=== PATIENT | female | born 1970 | race Caucasian/White ===

== ENCOUNTER 2016-12-14 01:55 | Emergency (ER) | payer OTHER ==
[2016-12-14] MEDS ORDERED: FLUORESCEIN STRIP 1 MG/STRIP STRIP ONE (02:20)
--- NOTE | 2016-12-14 02:28 | ER PHYSICIAN DOCUMENTATION ---
Physician Documentation [facility] Name:Nola Mcintyre Age:46 yrs Sex:Female :1970 Arrival Date:12/14/2016 Time:01:55 Bed2 Private MD: Martínez Tinoco Disposition: 12/14/16 02:19 Discharged to Home/Self Care. Impression: Corneal Abrasion. - Condition is Fair. - Discharge Instructions: CORNEAL ABRASION. - Prescriptions for Tobramycin Sulfate 0.3 % Ophthalmic Drops - instill 2 drop by OPHTHALMIC route every 4 hours; 5 milliliter. Acular 0.5 % Ophthalmic Drops - instill 1 drop by OPHTHALMIC route every 6 hours into affected eye(s); 5 milliliter. - Medical Reconciliation form form. - Follow up: Gregory Carey MD; When: 1 - 2 days; Reason: Continuance of care. - Problem is new. - Symptoms have improved. HPI: 12/14 03:45 This 46 yrs old Female presents to ER via Walk In with complaints of Eye Pain jm - Right. 03:45 The patient is experiencing pain. Onset: The symptom(s)/episode began/occurred today. jm The patient has experienced similar episodes in the past, and the symptoms today are exactly the same, to when the patient was apparently diagnosed with corneal abrasion. . Historical: - Allergies: No known drug Allergies; - Tetanus: < 10 years. - Ebola Screening: : Patient negative for fever greater than or equal to 101.5 degrees Fahrenheit, and additional compatible Ebola Virus Disease symptoms. Patient denies exposure to infectious person. Patient denies travel to an Ebola-affected area in the 21 days before illness onset. No symptoms or risks identified at this time. . - Immunization history: Flu Vaccine < 1 year. - Social history: Smoking status: Patient states was never smoker of tobacco. ROS: 03:46 Constitutional: Negative for fatigue. jm 03:46 Eyes: Positive for pain. 03:46 Abdomen/GI: Negative for abdominal pain, nausea, vomiting. Exam: 03:46 Constitutional: The patient appears alert, awake. jm 03:46 Eyes: Corneas: abrasion, that is moderate sized, at 5 o'clock, a fluorescein strip employed to appreciate the findings. Vital Signs: 02:03 BP 164 / 97 LA Sitting (auto/reg); Pulse 96 LA; Resp 16 S; Temp 98.1(O); Pulse Ox 97% em3 on R/A; Weight 88.45 kg (R); Height 5 ft. 11 in. (180.34 cm) (R); Pain /; 02:03 Body Mass Index 27.20 (88.45 kg, 180.34 cm) em3 MDM: 02:19 Patient medically screened. olivier 03:46 Differential diagnosis: Corneal abrasion of. Data reviewed: vital signs, nurses notes, olivier and as a result, I will discharge patient. Counseling: I had a detailed discussion with the patient and/or guardian regarding: the historical points, exam findings, and any diagnostic results supporting the discharge/admit diagnosis, the need for outpatient follow up, an opthalmologist. Dispensed Medications: 02:07 Drug: Fluorescein Strip 1 strip; Route: Ophthalmic; Site: right eye; bw2 02:26 Follow up: Response: No adverse reaction bw2 02:20 Drug: ketorolac (PF) Dropperette 0.45 % 1 drops; Route: Ophthalmic; Site: right eye; bw2 02:26 Follow up: Response: No adverse reaction bw2 02:20 Drug: Tobramycin Drops (0.3 %) 2 drops; Route: Ophthalmic; Site: right eye; bw2 02:26 Follow up: Response: No adverse reaction bw2 Signatures: Martínez Peñaloza MD MD jm Wisely, Beth bw2
--- NOTE | 2016-12-14 02:28 | ER NURSING DOCUMENTATION ---
Nurse's Notes [facility] Name:Nola Mcintyre Age:46 yrs Sex:Female :1970 Arrival Date:12/14/2016 Time:01:55 Bed2 Private MD: Diagnosis:Corneal Abrasion Presentation: 12/14 01:57 Acuity: RENETTA 4 bw2 02:01 Presenting complaint: Patient states: right eye pain. pt stats this is simular to her bw2 corneal abrasions in the past. Transition of care: patient was not received from another setting of care. Mechanism of Injury: No Mechanism of Injury. The patient denies any loss of vision. 02:01 Method Of Arrival: Walk In 2 Triage Assessment: 02:02 General: Appears in no apparent distress, Behavior is anxious, appropriate for age. bw2 Pain: Denies pain. EENT: Eyes are tearing on outer aspect of conjuctiva of right eye, iris of right eye, inner aspect of conjuctiva of right eye and right inner canthus. Historical: - Allergies: No known drug Allergies; - Tetanus: < 10 years. - Ebola Screening: : Patient negative for fever greater than or equal to 101.5 degrees Fahrenheit, and additional compatible Ebola Virus Disease symptoms. Patient denies exposure to infectious person. Patient denies travel to an Ebola-affected area in the 21 days before illness onset. No symptoms or risks identified at this time. . - Immunization history: Flu Vaccine < 1 year. - Social history: Smoking status: Patient states was never smoker of tobacco. Screenin:03 Infectious Disease Risk None. Abuse screen: Denies threats or abuse. Nutritional bw2 screening: No deficits noted. Assessment: 02:03 See Triage Assessment done by same RN. bw2 02:27 EENT: Sclera/Cornea. bw2 Vital Signs: 02:03 BP 164 / 97 LA Sitting (auto/reg); Pulse 96 LA; Resp 16 S; Temp 98.1(O); Pulse Ox 97% em3 on R/A; Weight 88.45 kg (R); Height 5 ft. 11 in. (180.34 cm) (R); Pain 1/10; 02:03 Body Mass Index 27.20 (88.45 kg, 180.34 cm) em3 ED Course: 01:56 Patient arrived in ED. em3 01:57 Analy Quijano is Primary Nurse. bw2 01:57 Triage completed. bw2 02:03 Valuables Remains with patient. bw2 02:04 Patient has correct armband on for positive identification. Bed in low position. Call em3 light in reach. Side rails up X 1. 02:06 Martínez Peñaloza MD is Attending Physician. olivier 02:18 Gregory Carey MD is Referral Physician. olivier Administered Medications: 02:07 Drug: Fluorescein Strip 1 strip; Route: Ophthalmic; Site: right eye; bw2 02:26 Follow up: Response: No adverse reaction bw2 02:20 Drug: ketorolac (PF) Dropperette 0.45 % 1 drops; Route: Ophthalmic; Site: right eye; bw2 02:26 Follow up: Response: No adverse reaction bw2 02:20 Drug: Tobramycin Drops (0.3 %) 2 drops; Route: Ophthalmic; Site: right eye; bw2 02:26 Follow up: Response: No adverse reaction 2 Outcome: 02:19 Discharge ordered by . 02:27 Discharged to home ambulatory, with significant other. bw2 02:27 Condition: good 02:27 Discharge Assessment: Patient awake, alert and oriented x 3. No cognitive and/or functional deficits noted. Patient verbalized understanding of disposition instructions. 02:27 Discharge instructions given to patient, Instructed on follow up and referral plans. Demonstrated understanding of instructions, medications, Prescriptions given X 2. 02:27 Patient left the ED. bw2 Signatures: Martínez Peñaloza MD MD jm Meiklejohn, Eric em3 Analy Quijano bw2
[2016-12-14] MEDS ORDERED: KETOROLAC 0.45% OPHTH 1 DROP/EACH DROPERETTE ONE (02:33)
[2016-12-14] MEDS ORDERED: TOBRAMYCIN 0.3% OPHTH 25 DROP/5 ML BTL ONE (02:34)
== END 2016-12-14 02:28 | disposition home or self-care (01) ==
LOC: ER 01:55
DX: S05.01XA Injury of conjunctiva and corneal abrasion without foreign body, right eye, initial encounter (principal)
CPT/HCPCS: 99283